=== PATIENT | female | born 1945 | race Caucasian/White ===

== ENCOUNTER 2024-01-15 23:53 | Inpatient (IN) | payer OTHER, MEDICAID ==
[~2024-01-15] VITALS: Ht 152.4 cm; Wt 61.0 kg
[2024-01-16 00:23] LABS: BASOPHILS % 0.2 % (0.0-2.0); EOSINOPHILS % 3.8 % (0.0-5.0); HEMATOCRIT. 35.2 % (36.0-48.0); HEMOGLOBIN. 12.2 g/dL (12.0-16.0); LYMPHOCYTES % 31.7 % (20.0-50.0); MEAN CORPUSCULAR HEMOGLOBIN 30.8 pg (28.0-32.0); MEAN CORPUSCULAR HGB CONC 34.7 g/dL (31.0-37.0); MEAN CORPUSCULAR VOLUME 88.8 fL (81.0-99.0); MEAN PLATELET VOLUME 7.7 fl (7.4-10.4); MONOCYTES % 8.3 % (2.0-8.0); PLATELET 297 x1000/uL (130-400); RED BLOOD CELL COUNT 3.96 mill/uL (4.2-5.4); RED CELL DISTRIBUTION WIDTH 12.6 % (11.6-14.6); WHITE BLOOD COUNT 7.8 x1000/uL (4.5-11.0)
[2024-01-16 00:27] LABS: CHLORIDE 99 mEq/L (98-107); POTASSIUM 3.9 mEq/L (3.5-5.1); SODIUM 133 mEq/L (136-145)
[2024-01-16 00:28] LABS: CALCIUM 9.3 mg/dL (8.7-10.4); CARBON DIOXIDE 23 mEq/L (21-32)
[2024-01-16 00:33] LABS: CREATININE 0.9 mg/dL (0.6-1.0); GLUCOSE 135 mg/dL (70-105); UREA NITROGEN BLOOD 27 mg/dL (9-23)
[2024-01-16 00:35] LABS: TROPONIN I HIGH SENSITIVITY 4 ng/L (3.0-34)
[2024-01-16 00:37] LABS: ETHANOL BLOOD < 10 mg/dL (<10)
[2024-01-16] MEDS: ACETAMINOPHEN 325MG TABLET PO ONE (00:39)
[2024-01-16] MEDS: MECLIZINE 12.5MG TABLET PO ONE (00:39)
[2024-01-16 00:55] LABS: PARTIAL THROMBOPLASTIN TIME 25.4 sec (23.4-31.0)
[2024-01-16] MEDS: MORPHINE SULFATE 2 MG/ML INJ (NOT FOR IM USE) IV ONE (03:56)
[2024-01-16] MEDS ORDERED: HYDROCODONE/ACETAMINOPHEN 5/325MG TABLET PO PRN (04:30)
[2024-01-16] MEDS ORDERED: CLONIDINE 0.1MG TABLET PO PRN (04:30)
[2024-01-16] MEDS ORDERED: MAGNESIUM/ALUMINUM HYDROXIDE/SIMETHICONE 30ML UDC PO PRN (04:30)
[2024-01-16] MEDS ORDERED: ACETAMINOPHEN 325MG TABLET PO PRN (04:30)
[2024-01-16] MEDS ORDERED: ONDANSETRON HCL 4MG/2ML INJ IV PRN (04:30)
[2024-01-16] MEDS ORDERED: NALOXONE HCL 0.4MG/ML VIAL IV PRN (04:30)
[2024-01-16] MEDS: AMLODIPINE 10MG TABLET PO SCH (09:59)
[2024-01-16] MEDS: OMEPRAZOLE 20MG CAPSULE EXTENDED RELEASE PO SCH (09:59)
[2024-01-16] MEDS: ENOXAPARIN 40MG/0.4ML SYR SUBCUT SCH (10:01)
[2024-01-16 16:00] VITALS: BP 142/63; PULSE 87; RESP 18; TEMP 97.6
[2024-01-16 17:57] VITALS: BP 142/63; PULSE 87; RESP 18; TEMP 97.3
[2024-01-16] MEDS ORDERED: METF-414 MT (19:04)
[2024-01-16] MEDS ORDERED: ATOR20TA65 MT (19:04)
[2024-01-16] MEDS ORDERED: ASPI-1497 MT (19:04)
[2024-01-16 20:00] VITALS: BP 145/61; PULSE 99; RESP 18; TEMP 97.8
[2024-01-17] VITALS: BP 134/58; PULSE 77; RESP 18; TEMP 97.7
[2024-01-17 04:00] VITALS: BP 126/62; PULSE 82; RESP 18; TEMP 97.9
[2024-01-17 07:39] LABS: CHLORIDE 104 mEq/L (98-107); POTASSIUM 4.6 mEq/L (3.5-5.1); SODIUM 138 mEq/L (136-145)
[2024-01-17 07:40] LABS: CALCIUM 9.5 mg/dL (8.7-10.4); CARBON DIOXIDE 25 mEq/L (21-32); T4 FREE 1.24 ng/dL (0.89-1.76); THYROID STIMULATING HORMONE 5.76 uIU/mL (0.55-4.78)
[2024-01-17 07:43] LABS: TRIGLYCERIDE 143 mg/dL (0-150)
[2024-01-17 07:44] LABS: PROTEIN TOTAL 7.1 g/dL (6.0-8.3)
[2024-01-17 07:45] LABS: CREATININE 0.8 mg/dL (0.6-1.0); GLUCOSE 128 mg/dL (70-105)
[2024-01-17 07:46] LABS: LDL CHOLESTEROL 101 mg/dL (5-100); UREA NITROGEN BLOOD 19 mg/dL (9-23)
[2024-01-17 07:47] LABS: ALANINE AMINOTRANSFERASE 30 IU/L (10-49); ALBUMIN 4.2 g/dL (3.2-4.8); ASPARTATE AMINOTRANSFERASE 19 IU/L (<34); BILIRUBIN DIRECT 0.2 mg/dL (<=3.0); CHOLESTEROL 157 mg/dL (<200); HDL CHOLESTEROL 41 mg/dL (>65)
[2024-01-17 07:48] LABS: BILIRUBIN TOTAL 0.7 mg/dL (0.1-1.0); PHOSPHORUS 4.1 mg/dL (2.5-4.9)
[2024-01-17 07:52] LABS: BASOPHILS % 0.3 % (0.0-2.0); EOSINOPHILS % 8.1 % (0.0-5.0); HEMATOCRIT. 37.7 % (36.0-48.0); HEMOGLOBIN. 12.9 g/dL (12.0-16.0); LYMPHOCYTES % 37.2 % (20.0-50.0); MEAN CORPUSCULAR HEMOGLOBIN 30.6 pg (28.0-32.0); MEAN CORPUSCULAR HGB CONC 34.1 g/dL (31.0-37.0); MEAN CORPUSCULAR VOLUME 89.8 fL (81.0-99.0); MEAN PLATELET VOLUME 8.2 fl (7.4-10.4); MONOCYTES % 8.9 % (2.0-8.0); NEUTROPHILS % 45.5 % (40.0-76.0); PLATELET 283 x1000/uL (130-400); RED CELL DISTRIBUTION WIDTH 12.8 % (11.6-14.6); WHITE BLOOD COUNT 6.1 x1000/uL (4.5-11.0)
[2024-01-17 08:00] VITALS: BP 153/57; PULSE 66; RESP 20; TEMP 97.2
[2024-01-17 12:00] VITALS: BP 147/59; PULSE 78; RESP 20; TEMP 97.5
[2024-01-17] MEDS ORDERED: AMLO10TA80 PO (12:36)
[2024-01-17 14:47] VITALS: BP 147/59; PULSE 78; TEMP 97.5; O2SAT 99
[2024-01-17 16:00] VITALS: BP 145/65; PULSE 82; RESP 20; TEMP 97.7
[2024-01-18] MEDS ORDERED: FAMOTIDINE 20MG TABLET PO SCH (09:00)
== END 2024-01-17 18:16 | disposition home or self-care (01) | DRG 305 ==
LOC: ER 01-16 00:28 → 5WST 01-16 01:56 → 7WST 01-16 17:06
PROVIDERS: ADMIT Family Medicine Adult Medicine; ATTEND Family Medicine Adult Medicine
DX: I16.0 Hypertensive urgency (principal); G44.209 Tension-type headache, unspecified, not intractable; I10 Essential (primary) hypertension; R07.89 Other chest pain
CPT/HCPCS: 36415; 71045; 80048; 80061; 80076; 80320; 83735; 83880; 84100; 84439; 84443; 84484; 85025; 93005; 93970; 99285; J1650; J2270; J8597; G0480